=== PATIENT | male | born 1960 | race Caucasian/White ===

== ENCOUNTER 2018-09-01 19:38 | Emergency (ER) | payer BC ==
[~2018-09-01] VITALS: Ht 182.9 cm; Wt 122.9 kg
[2018-09-01 19:45] VITALS: Ht 182.9 cm; Wt 122.9 kg
[2018-09-01 20:24] VITALS: BP 134/94
== END 2018-09-01 20:24 | disposition home or self-care (01) ==
LOC: ED 19:38
DX: R25.1 Tremor, unspecified (principal); R68.83 Chills (without fever); R19.7 Diarrhea, unspecified; I10 Essential (primary) hypertension; G89.29 Other chronic pain; M54.9 Dorsalgia, unspecified; M25.519 Pain in unspecified shoulder
CPT/HCPCS: Q0162